=== PATIENT | male | born 1955 | race Caucasian/White ===

== ENCOUNTER 2020-08-13 13:14 | Emergency (ER) | payer SELFPAY ==
[~2020-08-13] VITALS: Ht 185.4 cm; Wt 86.3 kg
--- NOTE | 2020-08-13 13:23 | PHYS DOC ---
Past History Past Medical History: Alcoholism, Hypertension Smoking: Chew Alcohol Use: Heavy Drug Use: None Adult General Chief Complaint Chief Complaint: DIZZY/LIGHT HEADED HPI HPI Patient is a 64-year-old male who presents via POV for dizziness and full body tremor. States this is an acute on chronic problem. Reports having Covid in May, got over this but. He may have suffered from undiagnosed pneumonia for weeks after. He has no primary care provider, did not seek any care during this time. Reports approximately 48 hours ago developing full body tremors. Nothing known makes these tremors better or worse. He has never experienced anything like this before. These do not interfere with his activities of daily living. This morning on waking up he also felt dizzy, stated that the room was spinning. No known exacerbating factors. He has not had any falls, fever, recent sick contacts, travel, chest pain, shortness of breath, abdominal pain, dysuria, changes in motor or sensory function, no neurologic deficits. Has history of hypertension only for which he takes 30 mg twice daily lisinopril. Uses chew tobacco, non-smoking, abuses alcohol almost daily reporting he drinks proximately a sixpack most days with last drink yesterday evening. He has never had withdrawals in the past Review of Systems Review of Systems Fourteen body systems of review of systems have been reviewed. See HPI for pertinent positives and negative responses, other melendez all other systems are negative, non-pertinent or non-contributory Physical Exam Physical Exam Constitutional: Well developed, well nourished, no acute distress, non-toxic appearance. HENT: Normocephalic, atraumatic, bilateral external ears normal, oropharynx moist, no oral exudates, nose normal. Eyes: PERRLA, EOMI, conjunctiva normal, no discharge. Neck: Normal range of motion, no tenderness, supple, no stridor. Cardiovascular: Heart rate regular, sinus rhythm, no murmurs rubs or gallops Lungs & Thorax: Bilateral breath sounds clear to auscultation Abdomen: Bowel sounds normal, soft, no tenderness, no masses, no pulsatile masses. Nonsurgical abdomen, no peritoneal signs Skin: Warm, dry, no erythema, no rash. Back: No tenderness, no CVA tenderness. Extremities: No tenderness, no cyanosis, no clubbing, ROM intact, no edema. Neurologic: Alert and oriented X 3, ambulated from entrance to ER room without any observed difficulties, cranial nerves II through XII intact, normal motor & sensory function, no focal deficits noted. Resting tremor, no tremor with intentional body movements Psychologic: Anxious mood and affect Current Patient Data Vital Signs Vital Signs Date Time Temp Pulse Resp B/P (MAP) Pulse Ox O2 Delivery O2 Flow Rate FiO2 08/13/20 13:50 98.1 116 28 167/87 (113) 98 Vital Signs Date Time Temp Pulse Resp B/P (MAP) Pulse Ox O2 Delivery O2 Flow Rate FiO2 08/13/20 13:50 98.1 116 28 167/87 (113) 98 Lab Results Laboratory Tests Test 08/13/20 13:23 08/13/20 13:44 08/13/20 14:40 Glucose (Fingerstick) 147 mg/dL White Blood Count 5.5 x10^3/uL Red Blood Count 4.37 x10^6/uL Hemoglobin 14.1 g/dL Hematocrit 41.6 % Mean Corpuscular Volume 95 fL Mean Corpuscular Hemoglobin 32 pg Mean Corpuscular Hemoglobin Concent 34 g/dL Red Cell Distribution Width 13.9 % Platelet Count 164 x10^3/uL Neutrophils (%) (Auto) 76 % Lymphocytes (%) (Auto) 13 % Monocytes (%) (Auto) 10 % Eosinophils (%) (Auto) 1 % Basophils (%) (Auto) 1 % Neutrophils # (Auto) 4.2 x10^3uL Lymphocytes # (Auto) 0.7 x10^3/uL Monocytes # (Auto) 0.5 x10^3/uL Eosinophils # (Auto) 0.1 x10^3/uL Basophils # (Auto) 0.0 x10^3/uL Sodium Level 140 mmol/L Potassium Level 4.2 mmol/L Chloride Level 101 mmol/L Carbon Dioxide Level 28 mmol/L Anion Gap 11 Blood Urea Nitrogen 17 mg/dL Creatinine 1.0 mg/dL Estimated GFR (Cockcroft-Gault) 75.7 BUN/Creatinine Ratio 17 Glucose Level 153 mg/dL Calcium Level 9.4 mg/dL Total Bilirubin 0.5 mg/dL Aspartate Amino Transf (AST/SGOT) 54 U/L Alanine Aminotransferase (ALT/SGPT) 70 U/L Alkaline Phosphatase 90 U/L Troponin I Quantitative < 0.017 ng/mL Total Protein 7.8 g/dL Albumin 4.3 g/dL Albumin/Globulin Ratio 1.2 Ethyl Alcohol Level < 10 mg/dL Urine Opiates Screen Neg Urine Methadone Screen Neg Urine Barbiturates Neg Urine Phencyclidine Screen Neg Urine Amphetamine/Methamphetamine Neg Urine Benzodiazepines Screen Neg Urine Cocaine Screen Neg Urine Cannabinoids Screen Neg Urine Ethyl Alcohol Pos EKG EKG EKG ordered and interpreted by myself at 1330 hrs. sinus rhythm at 108 bpm, unremarkable intervals, left axis deviation, no acute ischemic findings, no STEMI Radiology/Procedures Radiology/Procedures ST CT HEAD/BRAIN WO, XR CHEST 1V dated 08/13/2020 1:36 PM Indication:Reason: dizzy, new full-body tremor / Spl. Instructions: / History: Comparison: No comparison is available. Technique: Noncontrast images were made through the brain. One or more of the following individualized dose reduction techniques were utilized for this examination: 1. Automated exposure control 2. Adjustment of the mA and/or kV according to patient size 3. Use of iterative reconstruction technique Findings: CT head: There is no apparent intracranial mass, hemorrhage or abnormal extra- axial fluid collection. No area of abnormal density is seen in the brain. The ventricles and basilar cisterns are normally positioned. Sinuses and mastoid air cells appear clear. Chest AP portable: No infiltrate or effusion is seen. Heart size and pulmonary vascularity appear normal. IMPRESSION: CT head: No acute abnormality. AP chest portable: No acute abnormality. Electronically signed by: Keshav Cortez Jr., MD (08/13/2020 2:05 PM) [id number] Heart Score C/O Chest Pain: No HEART Score for Chest Pain: HEART Score for Chest Pain Response (Comments) Value History Slighlty/Non-Suspicious 0 ECG Normal 0 Age >45 - < 65 1 Risk Factors 1 or 2 Risk Factors 1 Troponin < Normal Limit 0 Total 2 Risk Factors: Risk Factors: DM, Current or recent (<one month) smoker, HTN, HLP, family history of CAD, obesity. Risk Scores: Risk Factors: DM, Current or recent (<one month) smoker, HTN, HLP, family history of CAD, obesity. Course & Med Decision Making Course & Med Decision Making Hemodynamically stable patient with HPI concerning for chronic alcohol abuse and no PCP/continuity of care. Physical exam was unremarkable as was comprehensive diagnostic work-up in ER Disclosed entirety of the ER course with patient, discussed little role for further intervention or diagnostic work-up in ER setting, no indication for hospitalization at present. Patient is well-appearing and ambulatory. There is low risk for any emergent or surgical pathology at present Educated and stressed importance of close outpatient follow-up with patient and who is at bedside, strict return precautions were discussed at length with good understanding by both. All questions and concerns addressed prior to ER departure Dragon Disclaimer Dragon Disclaimer This electronic medical record was generated, in whole or in part, using a voice recognition dictation system. Departure Departure: Impression: Primary Impression: Dizzy Additional Impression: Tremor Disposition: 01 DC HOME SELF CARE/HOMELESS Condition: STABLE Referrals: PCP,NO (PCP) Patient Instructions: Dizziness, Tremor Additional Instructions: As discussed prior to ER departure, your physical exam and comprehensive ER work-up was grossly nonconcerning for any emergent nor surgical pathology. Bec ause of this, it is vital that you follow-up with your primary care physician in outpatient setting to review ER visit today. It is likely will be required to perform further diagnostic studies in outpatient setting and if needed, seek outpatient consultation with other services such as neurology if your symptoms do not resolve. You are educated on strict return precautions that should prompt immediate medical attention by their primary care provider or other healthcare professional such as here at the ER. If any concerning signs or symptoms present prior to outpatient follow-up please do not hesitate to come back for repeat evaluation. It was a pleasure to take care of you and I wish you the best going forward Problem Qualifiers PAT TALBOT DO Aug 13, 2020 13:23
[2020-08-13 13:50] VITALS: BP 167/87
[2020-08-13 14:01] LABS: BASO % 1 % (0-3); EOS # 0.1 x10^3/uL (0.0-0.7); EOS % 1 % (0-3); HEMATOCRIT 41.6 % (39.0-53.0); HEMOGLOBIN 14.1 g/dL (13.0-17.5); LYMPH # 0.7 x10^3/uL (1.0-4.8); LYMPH % 13 % (24-48); MEAN CORPUSCULAR HEMOGLOBIN 32 pg (25-35); MEAN CORPUSCULAR HGB CONC 34 g/dL (31-37); MEAN CORPUSCULAR VOLUME 95 fL (79-100); MONO # 0.5 x10^3/uL (0.0-1.1); MONO % 10 % (0-9); NEUT # 4.2 x10^3uL (1.8-7.7); NEUT % 76 % (31-73); PLATELET COUNT 164 x10^3/uL (140-400); RED BLOOD COUNT 4.37 x10^6/uL (4.30-5.70); RED CELL DISTRIBUTION WIDTH 13.9 % (11.5-14.5); WHITE BLOOD COUNT 5.5 x10^3/uL (4.0-11.0)
--- NOTE | 2020-08-13 14:07 | EKG ---
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
--- NOTE | 2020-08-13 14:08 | RAD ---
CT HEAD/BRAIN WO, XR CHEST 1V dated 08/13/2020 1:36 PM Indication:Reason: dizzy, new full-body tremor / Spl. Instructions: / History: Comparison: No comparison is available. Technique: Noncontrast images were made through the brain. One or more of the following individualized dose reduction techniques were utilized for this examinat ion: 1. Automated exposure control 2. Adjustment of the mA and/or kV according to patient size 3. Use of iterative reconstruction technique Findings: CT head: There is no apparent intracranial mass, hemorrhage or abnormal extra-axial fluid collection. No area of abnormal density is seen in the brain. The ventricles and basilar cisterns are normally p ositioned. Sinuses and mastoid air cells appear clear. Chest AP portable: No infiltrate or effusion is seen. Heart size and pulmonary vascularity appear nor mal. IMPRESSION: CT head: No acute abnormality. AP chest portable: No acute abnormality. Electronically signed by: Keshav Cortez Jr., MD (08/13/2020 2:05 PM) [id number]
[2020-08-13 14:09] LABS: CALCIUM 9.4 mg/dL (8.5-10.1); GFR 75.7; POTASSIUM 4.2 mmol/L (3.5-5.1)
[2020-08-13 14:15] LABS: ALBUMIN 4.3 g/dL (3.4-5.0); ALBUMIN/GLOBULIN RATIO 1.2 (1.0-1.7); TOTAL BILIRUBIN 0.5 mg/dL (0.2-1.0); TOTAL PROTEIN 7.8 g/dL (6.4-8.2)
[2020-08-13 15:01] LABS: AMPHETAMINE/METHAMPHETAMINE NEG (NEG); BARBITURATES NEG (NEG); BENZODIAZEPINES NEG (NEG); CANNABINOIDS NEG (NEG); COCAINE NEG (NEG); METHADONE NEG (NEG); OPIATES NEG (NEG); PHENCYCLIDINE NEG (NEG)
[2020-08-13 15:21] LABS: BACTERIA,URINE 0 /HPF (0-FEW); BILIRUBIN,URINE NEG (NEG); CLARITY,URINE CLEAR; COLOR,URINE YELLOW; GLUCOSE,URINE NEG (NEG); HYALINE CASTS, URINE FEW /HPF; NITRITE,URINE NEG (NEG); RBC,URINE OCC /HPF (0-2); SQUAMOUS EPITHELIAL CELL,UR FEW /LPF; UROBILINOGEN,URINE 0.2 mg/dL (0.2 mg/dL); WBC,URINE OCC /HPF (0-4)
== END 2020-08-13 15:25 | disposition home or self-care (01) ==
LOC: ER 13:14
DX: R42 Dizziness and giddiness (principal); R25.1 Tremor, unspecified; I10 Essential (primary) hypertension; F10.20 Alcohol dependence, uncomplicated; F17.220 Nicotine dependence, chewing tobacco, uncomplicated; Y90.0 Blood alcohol level of less than 20 mg/100 ml
CPT/HCPCS: 36415; 70450; 71045; 80053; 80307; 81001; 82947; 84443; 84484; 85025; 93005; 99285; G0480